=== PATIENT | male | born 1990 | race Two or more races ===

== ENCOUNTER 2021-12-10 17:11 | Emergency (ER) | payer MEDICAID ==
[~2021-12-10] VITALS: Ht 170.2 cm; Wt 76.7 kg
[2021-12-10] MEDS ORDERED: ONDANSETRON HCL/PF 4 MG/2 ML VIAL IVP ONE (17:30)
[2021-12-10] MEDS ORDERED: IV NS 0.9% 1,000 ML BAG IV ONE (17:30)
[2021-12-10] MEDS ORDERED: MORPHINE SULFATE INJ 2 MG/ML DISP.SYRIN IV ONE (17:30)
[2021-12-10] MEDS ORDERED: IOHEXOL-300 100 ML VIAL IV ONE (17:43)
[2021-12-10] MEDS ORDERED: CT SWABBABLE VALVE TRANS SET 1 EA INFUS.SET MC ONE (17:43)
[2021-12-10] MEDS ORDERED: IV NS 0.9% 250 ML IV ONE (17:43)
[2021-12-10] MEDS ORDERED: ONDANSETRON HCL/PF 4 MG/2 ML VIAL ONE (17:51)
[2021-12-10] MEDS ORDERED: MORPHINE SULFATE INJ 4 MG/ML DISP.SYRIN ONE (17:52)
--- NOTE | 2021-12-10 17:58 | NUR ---
TAKEN TO CT VIA [facility]
[2021-12-10 18:08] LABS: BASOPHILS % (AUTO) 0.2 % (0.0-2.0); EOSINOPHILS % (AUTO) 0.6 % (0.0-6.0); HEMATOCRIT 43 % (39-51); HEMOGLOBIN 14.2 g/dL (13.5-17.5); LYMPHOCYTES # (AUTO) 2.1 K/uL (0.8-4.8); LYMPHOCYTES % (AUTO) 20.6 % (20.0-44.0); MEAN CORPUSCULAR HGB CONC 33 g/dl (31.0-36.0); MEAN CORPUSCULAR VOLUME 89 fL (80-96); MONOCYTES # (AUTO) 0.6 K/uL (0.1-1.30); MONOCYTES % (AUTO) 5.6 % (2.0-12.0); NEUTROPHILS # (AUTO) 7.5 K/uL (1.8-8.9); PLATELET COUNT (AUTO) 217 K/uL (150-450); RED BLOOD CELL COUNT(AUTO) 4.77 MIL/uL (4.5-6.0); WHITE BLOOD COUNT (AUTO) 10.2 K/uL (4.3-11.0)
[2021-12-10 18:22] LABS: CALCIUM, SERUM 8.9 mg/dL (8.5-10.1); CREATININE 1.3 mg/dL (0.6-1.3); POTASSIUM 3.4 mmol/L (3.5-5.1)
[2021-12-10 18:36] LABS: ALBUMIN 4.1 g/dL (3.4-5.0); BILIRUBIN,DIRECT 0.1 mg/dL (0.0-0.2); BILIRUBIN,TOTAL 0.4 mg/dL (0.2-1.0); TOTAL PROTEIN, SERUM 7.8 g/dL (6.4-8.2)
--- NOTE | 2021-12-10 19:23 | NUR ---
URINE SAMPLE COLLECTED AND SENT TO LAB.
--- NOTE | 2021-12-10 19:48 | NUR ---
DR. PAREKH ON THE PHONE WITH TOMAS PINTO
[2021-12-10] MEDS ORDERED: NAPR-1009 PO (19:53)
[2021-12-10 20:04] LABS: BILIRUBIN,URINE NEGATIVE (NEGATIVE); COLOR,URINE YELLOW (YELLOW); LEUKOCYTE ESTERASE ,URINE NEGATIVE (NEGATIVE); NITRITE, URINE NEGATIVE (NEGATIVE); PH,URINE 6.5 (5.0-8.0); PROTEIN,URINE NEGATIVE (NEGATIVE); UGLUCOSE NEGATIVE (NEGATIVE); UROBILINOGEN,URINE 0.2 EU/dL (0.2)
--- NOTE | 2021-12-10 20:44 | NUR ---
[facility] AT BEDSIDE.
--- NOTE | 2021-12-10 20:45 | NUR ---
Patient discharged to home in stable condition. Written and verbal after care instructions given. Patient verbalizes understanding of instruction.IV removed. Catheter intact and site benign. Pressure and 4x4 applied to site. No bleeding noted. Pt ambulatory with a steady gait
[2021-12-10 20:48] VITALS: BP 121/75
[2021-12-10 21:29] LABS: BACTERIA,URINE None seen /HPF (None Seen); SQUAMOUS EPITHELIAL CELL,UR 0-2 /HPF (None Seen); WBC,URINE 0-2 /HPF (0-3)
== END 2021-12-10 21:23 | disposition home or self-care (01) ==
LOC: ER 17:35
DX: S42.132A Displaced fracture of coracoid process, left shoulder, initial encounter for closed fracture (principal); S16.1XXA Strain of muscle, fascia and tendon at neck level, initial encounter; S20.214A Contusion of middle front wall of thorax, initial encounter; S80.02XA Contusion of left knee, initial encounter; S50.312A Abrasion of left elbow, initial encounter; R07.81 Pleurodynia; R51.9 Headache, unspecified; K80.20 Calculus of gallbladder without cholecystitis without obstruction; N28.1 Cyst of kidney, acquired; E87.6 Hypokalemia; R31.9 Hematuria, unspecified; V49.9XXA Car occupant (driver) (passenger) injured in unspecified traffic accident, initial encounter; Y93.89 Activity, other specified; Y92.89 Other specified places as the place of occurrence of the external cause; Y99.8 Other external cause status; Z79.1 Long term (current) use of non-steroidal anti-inflammatories (NSAID)
CPT/HCPCS: 99285; 72125; 96374; 96361; 96375; 73060; 73564; 71260; 70450; 74177; 85025; 80048; 80076; 81001; 36415; 85730; J2270; J2405; J7030; J7050; Q9967